=== PATIENT | male | born 1940 | race Hispanic/Latino ===

== ENCOUNTER 2016-05-15 06:33 | Outpatient (CLI) | payer MEDICARE, OTHER ==
--- NOTE | 2016-05-15 14:14 | Ultrasound Report ---
ULTRASOUND RENAL INDICATION: Multiple renal cysts. COMPARISON: 06/25/2015 ultrasound and 08/24/2014 CT. FINDINGS: Renal sonography again demonstrates bilateral enlarged kidneys. Right kidney measures 18 x 6.6 x 7 cm with cortical thickness of 1.7 cm. Mild increased renal cortical echogenicity. Multiple right renal cysts again noted, ranging approximately 4 to 8 cm in size. The largest right renal cyst noted superiorly measures 7.5 x 6.8 x 7.3 cm, image 14. 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 Urinary bladder grossly unremarkable, in so far seen. CONCLUSION: 1. Multiple right renal cysts again noted with underlying medical renal disease, as described. 2. 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 3. Few other findings/details, as above. Thank you for the opportunity to participate in this patient's care.
== END 2016-05-15 06:34 | disposition home or self-care (01) ==
LOC: US 06:33
PROVIDERS: ATTEND Urology
DX: Q61.02 Congenital multiple renal cysts (principal); N26.1 Atrophy of kidney (terminal)
CPT/HCPCS: 76770